=== PATIENT | female | born 1960 | race Caucasian/White ===

== ENCOUNTER 2018-09-13 15:17 | Emergency (ER) | payer BC ==
[~2018-09-13] VITALS: Ht 162.6 cm; Wt 90.0 kg
[2018-09-13 15:17] VITALS: BP 121/84
[2018-09-13 16:00] LABS: HEMATOCRIT 39.5 % (37.0-47.0); HEMOGLOBIN 12.8 g/dl (12.0-16.0); IMMATURE GRANULOCYTES 0.1 % (0.0-5.0); MEAN CELL VOLUME 87.4 fL CALC (80.0-100.0); MEAN CORPUSCULAR HGB 28.3 pG CALC (26.0-32.0); MEAN CORPUSCULAR HGB CONC 32.4 g/L CALC (32.0-36.0); NEUT# 3.83 thou/uL (2.00-7.15); RED BLOOD COUNT 4.52 mill/uL (4.20-5.60); RED CELL DISTRI WIDTH 15.5 % (11.5-15.5)
[2018-09-13 16:17] LABS: ALBUMIN 4.5 g/dL (3.2-5.0); ALKALINE PHOSPHATASE 73 u/l (38-126); ANION GAP 17 (6-22 (CALC)); BILIRUBIN, TOTAL 0.4 mg/dL (0.0-1.4); BUN 24 mg/dL (7-17); BUN/CREATININE RATIO 31 (12-20 (CALC)); CARBON DIOXIDE 25 mmol/l (22-30); CHLORIDE 104 mmol/l (95-108); CREATININE 0.8 mg/dL (0.5-1.0); GFR > 60 ML/MIN (>=60 (CALC)); GFR FOR AFR.AMER. > 60 ML/MIN (>=60 (CALC)); POTASSIUM 4.9 mmol/l (3.5-5.1); SGOT/AST 28 u/l (14-36); SODIUM 141 mmol/l (137-146); TOTAL PROTEIN 7.4 g/dL (6.3-8.2)
[2018-09-13] MEDS ORDERED: REQUIP4 MG PO (16:29)
[2018-09-13] MEDS ORDERED: COATED ASPIRIN325 MG PO (16:29)
[2018-09-13] MEDS ORDERED: NEXIUM40 MG PO (16:29)
[2018-09-13] MEDS ORDERED: TRULICITY1.5 MG/0.5 SC (16:30)
[2018-09-13] MEDS ORDERED: CYMBALTA60 MG PO (16:30)
[2018-09-13] MEDS ORDERED: CELEBREX200 MG PO (16:30)
[2018-09-13] MEDS ORDERED: METFORMIN500 MG PO (16:31)
[2018-09-13] MEDS ORDERED: FUROSEMIDE20 MG PO (16:32)
[2018-09-13] MEDS ORDERED: METFORMIN500 M1 PO (16:32)
[2018-09-13] MEDS ORDERED: METOPROL TAR25 MG PO (16:32)
[2018-09-13] MEDS ORDERED: VIACTIV PO (16:33)
[2018-09-13] MEDS ORDERED: KLONOPIN1 MG PO (16:33)
[2018-09-13] MEDS ORDERED: XYZAL5 MG PO (16:34)
[2018-09-13] MEDS ORDERED: CRESTOR5 MG PO (16:34)
[2018-09-13] MEDS ORDERED: PROAIR HFA108 MCG/AC PO (16:35)
[2018-09-13] MEDS ORDERED: PREDNISONE50 MG PO (17:55)
== END 2018-09-13 18:16 | disposition home or self-care (01) | DRG 203 ==
LOC: ED 15:17
PROVIDERS: Family Medicine
DX: J45.901 Unspecified asthma with (acute) exacerbation (principal); E11.9 Type 2 diabetes mellitus without complications; F41.9 Anxiety disorder, unspecified; F32.9 Major depressive disorder, single episode, unspecified